=== PATIENT | male | born 1985 | race Caucasian/White ===

== ENCOUNTER 2021-02-12 15:39 | Emergency (ER) | payer SELFPAY ==
[2021-02-12] MEDS ORDERED: Ibuprofen 800 MG TAB ONE (16:09)
[2021-02-12 17:06] LABS: Bilirubin Neg (Negative); Blood, Urine Negative (Negative); Clarity Clear (Clear); Glucose, Urine (Dipstick) Normal (Negative); Ketone, Urine Negative (Negative); Leukocyte Negative (Negative); Nitrite Negative (Negative); Protein, Urine (Dipstick) Negative (Neg-Trace); Specific Gravity, Urine 1.015 (1.002-1.036); Urobilinogen Normal mg/dL (Less than 2)
== END 2021-02-12 17:43 | disposition home or self-care (01) ==
LOC: CSHERS 15:39
DX: N45.2 Orchitis (principal); F17.220 Nicotine dependence, chewing tobacco, uncomplicated
CPT/HCPCS: 76870; 81003; 93976